=== PATIENT | male | born 1960 | race Caucasian/White ===

== ENCOUNTER → 2020-06-20 | Outpatient (CLI) | payer OTHER | END | disposition home or self-care (01) | LOC: SHCH 15:42 | PROVIDERS: ATTEND Internal Medicine Cardiovascular Disease | DX: R06.00 Dyspnea, unspecified (principal) | CPT/HCPCS: 93306; 93356 ==

== ENCOUNTER → 2020-06-22 | Outpatient (CLI) | payer OTHER ==
[~2020-06-22] VITALS: Ht 162.6 cm; Wt 108.4 kg
[~2020-06-22] MED LIST: REGADENOSON 0.4 MG/5 ML PF SYG IVP SCH
== END | disposition home or self-care (01) ==
LOC: SHCH 08:30 → EDUNIT# 08:30
PROVIDERS: ATTEND Internal Medicine Cardiovascular Disease
DX: R06.00 Dyspnea, unspecified (principal); R06.02 Shortness of breath; R94.31 Abnormal electrocardiogram [ECG] [EKG]
CPT/HCPCS: 78452; 93017; 96374; A9500 ×2; J2785

== ENCOUNTER 2024-07-05 09:35 | Day surgery (SDC) | payer OTHER ==
[2024-07-05] VITALS (10 sets, daily range): BP systolic 100–139; BP diastolic 66–87; PULSE 73–85; RESP 13–21; TEMP 97–97.7
[~2024-07-05] VITALS: Ht 193 cm; Wt 83.5 kg
[2024-07-05] MEDS ORDERED: ALBU18HF7 IH (10:29)
[2024-07-05] MEDS ORDERED: SERT-438 PO (10:29)
[2024-07-05] MEDS: 0.9%NACL 1000ML 1,000 ML IV ONE (10:33)
[2024-07-05] MEDS ORDERED: proPOFol 10 MG/ML 20ML VIAL IV ONE (11:41)
== END 2024-07-05 13:07 | disposition home or self-care (01) ==
LOC: DAH 09:35 → ENDO 09:35
PROVIDERS: ATTEND Internal Medicine Gastroenterology
DX: K22.81 Esophageal polyp (principal); C15.4 Malignant neoplasm of middle third of esophagus; K22.89 Other specified disease of esophagus; R12 Heartburn; F41.9 Anxiety disorder, unspecified; J45.909 Unspecified asthma, uncomplicated; Z79.899 Other long term (current) drug therapy
CPT/HCPCS: 43231; 00731; J7030 ×2; J2704; A4215 ×2; A4223; A4222; A4221; A4663; A4606; J3490